=== PATIENT | female | born 1990 | race Two or more races ===

== ENCOUNTER 2024-06-24 10:12 | Outpatient (CLI) | payer OTHER | END 2024-06-24 10:15 | disposition home or self-care (01) | LOC: PRENATAL 10:12 | PROVIDERS: ATTEND Obstetrics & Gynecology Maternal & Fetal Medicine | DX: O35.3XX0 Maternal care for (suspected) damage to fetus from viral disease in mother, not applicable or unspecified (principal); O44.00 Complete placenta previa NOS or without hemorrhage, unspecified trimester; O09.529 Supervision of elderly multigravida, unspecified trimester; Z3A.20 20 weeks gestation of pregnancy ==

== ENCOUNTER 2024-08-10 08:42 | Outpatient (CLI) | payer OTHER | END 2024-08-10 08:43 | disposition home or self-care (01) | LOC: PRENATAL 08:42 | PROVIDERS: ATTEND Obstetrics & Gynecology Maternal & Fetal Medicine | DX: O44.00 Complete placenta previa NOS or without hemorrhage, unspecified trimester (principal); O09.529 Supervision of elderly multigravida, unspecified trimester; Z3A.20 20 weeks gestation of pregnancy ==

== ENCOUNTER 2024-11-02 13:55 | Outpatient (CLI) | payer OTHER | END 2024-11-02 13:56 | disposition home or self-care (01) | LOC: PRENATAL 13:55 | PROVIDERS: ATTEND Obstetrics & Gynecology Maternal & Fetal Medicine | DX: O26.849 Uterine size-date discrepancy, unspecified trimester (principal); O36.8199 Decreased fetal movements, unspecified trimester, other fetus; O09.529 Supervision of elderly multigravida, unspecified trimester; Z3A.33 33 weeks gestation of pregnancy ==

== ENCOUNTER 2024-11-14 00:52 | Outpatient (CLI) | payer OTHER ==
[2024-11-13 23:41] VITALS: BP 118/82
[~2024-11-14] VITALS: Ht 160 cm; Wt 73.0 kg
[2024-11-14] MEDS ORDERED: PRENATAL TABLE1 EAC4 PO (00:57)
[2024-11-14] MEDS ORDERED: MACROBID 100 M100 MG PO (00:57)
[2024-11-14] MEDS ORDERED: RINGERS SOLUTION,LACTATED 1,000 ML IV SCH (01:15)
[2024-11-14] MEDS ORDERED: ACETAMINOPHEN 500 MG GEL..CAP PO PRN (01:15)
[2024-11-14 02:02] LABS: BASO % 0.5 % (0.1-1.2); EOS # 0.11 (0.04-0.54); EOS % 1.4 % (0.7-7.0); HEMATOCRIT 31.8 % (34.1-44.9); HEMOGLOBIN 10.7 g/dL (11.2-15.7); LYMPH # 1.15 (1.18-3.74); LYMPH % 14.6 % (19.3-53.1); MEAN CORPUSCULAR HEMOGLOBIN 29.4 pg (25.6-32.2); MONO % 7.6 % (4.7-12.5); NEUT # 5.95 (1.56-6.13); NEUT % 75.4 % (34.0-71.1); PLATELET COUNT 235 K/uL (163-369); RED BLOOD COUNT 3.64 M/uL (3.93-5.22); URINE APPEARANCE Clear; URINE BILIRRUBIN Negative (NEGATIVE); URINE BLOOD Negative; URINE COLOR Yellow; URINE GLUCOSE Negative (NEGATIVE); URINE KETONE Negative (NEGATIVE); URINE LEUKOCYTE Negative; URINE NITRATE Negative; URINE PROTEIN Negative (NEGATIVE); URINE UROBILINOGEN 0.2 E.U./dl
[2024-11-14 02:06] LABS: URINE BACTERIA 19.5 uL (0.0-1933); URINE EPITHELIAL CELLS 5.4 uL (0.0-38.8); URINE RBC 2.2 uL (0.0-20.8)
[2024-11-14 02:27] LABS: URINE WBC 0.3 uL (0.0-23.2)
[2024-11-14 03:33] VITALS: BP 97/68
[2024-11-14 07:30] VITALS: BP 99/68
[2024-11-14 11:08] VITALS: BP 99/68
== END 2024-11-14 16:46 | disposition home or self-care (01) ==
LOC: OBS/DEL 00:52 → LDR 01:40 → OBS/DEL 01:46
PROVIDERS: Obstetrics & Gynecology; ATTEND General Practice
DX: O26.893 Other specified pregnancy related conditions, third trimester (principal); Z3A.33 33 weeks gestation of pregnancy

== ENCOUNTER 2024-12-19 01:16 | Inpatient (IN) | payer OTHER ==
[~2024-12-19] VITALS: Ht 160 cm; Wt 73.0 kg
[2024-12-19] VITALS (7 sets, daily range): BP systolic 101–130; BP diastolic 55–82
[~2024-12-19 01:16] MED LIST: MACROBID 100 M100 MG PO; PRENATAL TABLE1 EAC4 PO
[2024-12-19] MEDS ORDERED: RINGERS SOLUTION,LACTATED 1,000 ML IV SCH (01:30)
[2024-12-19] MEDS ORDERED: AMPICILLIN SODIUM 2,000 MG VIAL IV ONE (01:30)
[2024-12-19 01:49] LABS: BASO % 0.3 % (0.1-1.2); EOS # 0.06 (0.04-0.54); EOS % 0.8 % (0.7-7.0); HEMATOCRIT 38.6 % (34.1-44.9); HEMOGLOBIN 13.3 g/dL (11.2-15.7); LYMPH # 1.35 (1.18-3.74); LYMPH % 18.1 % (19.3-53.1); MEAN CORPUSCULAR HEMOGLOBIN 30.7 pg (25.6-32.2); MONO # 0.52 (0.24-0.82); NEUT # 5.45 (1.56-6.13); NEUT % 73.3 % (34.0-71.1); PLATELET COUNT 279 K/uL (163-369); RED BLOOD COUNT 4.33 M/uL (3.93-5.22); RED CELL DISTRIBUTION WIDTH 14.2 % (11.6-14.4)
[2024-12-19 01:50] LABS: PH,URINE 6.5 (5.0-8.0); URINE APPEARANCE Cloudy; URINE BILIRRUBIN Negative (NEGATIVE); URINE BLOOD Small; URINE COLOR Yellow; URINE GLUCOSE Negative (NEGATIVE); URINE KETONE Negative (NEGATIVE); URINE LEUKOCYTE Negative; URINE NITRATE Negative; URINE PROTEIN 30 (NEGATIVE); URINE UROBILINOGEN 0.2 E.U./dl
[2024-12-19 01:53] LABS: URINE BACTERIA 89.3 uL (0.0-1933); URINE EPITHELIAL CELLS 37.5 uL (0.0-38.8); URINE RBC 258.6 uL (0.0-20.8); URINE WBC 20.1 uL (0.0-23.2)
[2024-12-19 01:59] LABS: INR < 0.93; PARTIAL THROMBOPLASTIN TIME 27.8 SECONDS (22.0-34.0); PROTHROMBIN TIME 9.8 SECONDS (9.0-11.5)
[2024-12-19 02:05] LABS: ALBUMIN 3.2 gm/dL (3.4-5.0); BILIRUBIN TOTAL 0.28 mg/dL (0.3-1.2); CALCIUM 9.3 mg/dL (8.5-10.1); CREATININE SERUM 0.59 mg/dL (0.55-1.02); GFR 115.99; POTASSIUM 3.7 mEq/L (3.5-5.1); TOTAL PROTEIN 7.2 gm/dL (6.4-8.2)
[2024-12-19] MEDS ORDERED: ONDANSETRON HCL 2 MG/ML VIAL ONE (02:07)
[2024-12-19 02:14] LABS: URINE CAST 1.03 uL (0.0-1.40)
[2024-12-19] MEDS ORDERED: OXYTOCIN 500 ML IV SCH (02:30)
[2024-12-19] MEDS ORDERED: ONDANSETRON HCL 2 MG/ML VIAL IV ONE (02:30)
[2024-12-19] MEDS ORDERED: MORPHINE SULFATE 4 MG/ML VIAL IV ONE (03:00)
[2024-12-19] MEDS ORDERED: AMPICILLIN SODIUM 1,000 MG VIAL IV SCH (05:00)
[2024-12-19] MEDS ORDERED: OXYTOCIN 20 UNITS/1000ML RL PIGGYBAG IV ONE (05:49)
[2024-12-19] MEDS ORDERED: ERYTHROMYCIN BASE OPHT 1GM EACH TUBE OP ONE (05:49)
[2024-12-19] MEDS ORDERED: CHLORHEXIDINE GLUCONATE 120 ML BOTTLE TOP ONE (05:49)
[2024-12-19] MEDS ORDERED: LIDOCAINE HCL 1% 10ML VIAL ONE (05:50)
[2024-12-19] MEDS ORDERED: ACETAMINOPHEN 500 MG GEL..CAP PO PRN (06:45)
[2024-12-19] MEDS ORDERED: IBUprofen 400 MG TABLET PO PRN (06:45)
[2024-12-19] MEDS ORDERED: CHLORHEXIDINE GLUCONATE 120 ML BOTTLE TOP SCH (06:45)
[2024-12-19] MEDS ORDERED: OXYTOCIN 1,000 ML IV SCH (06:45)
[2024-12-19 18:31] LABS: BASO % 0.2 % (0.1-1.2); EOS # 0.03 (0.04-0.54); EOS % 0.2 % (0.7-7.0); HEMATOCRIT 35.9 % (34.1-44.9); HEMOGLOBIN 12.2 g/dL (11.2-15.7); LYMPH # 1.13 (1.18-3.74); LYMPH % 8.6 % (19.3-53.1); MEAN CORPUSCULAR HEMOGLOBIN 29.9 pg (25.6-32.2); MONO # 0.56 (0.24-0.82); MONO % 4.3 % (4.7-12.5); NEUT # 11.32 (1.56-6.13); NEUT % 86.2 % (34.0-71.1); PLATELET COUNT 266 K/uL (163-369); RED BLOOD COUNT 4.08 M/uL (3.93-5.22); RED CELL DISTRIBUTION WIDTH 14.2 % (11.6-14.4)
[2024-12-20 01:00] VITALS: BP 90/61
[2024-12-20 08:00] VITALS: BP 107/74
[2024-12-20] MEDS ORDERED: DOCUSATE SODIUM 100MG CAP PO SCH (12:47)
[2024-12-20] MEDS ORDERED: BENZOCAINE/MENTHOL 90 ML BOTTLE TOP SCH (13:00)
[2024-12-20 15:51] VITALS: BP 92/68
[2024-12-20 23:57] VITALS: BP 92/64
[2024-12-21 08:50] VITALS: BP 108/74
[2024-12-21] MEDS ORDERED: IBUPROFEN400 MG PO (12:36)
[2024-12-21] MEDS ORDERED: COLACE100 MG PO (12:36)
== END 2024-12-21 13:00 | disposition home or self-care (01) | DRG 807 ==
LOC: OB/GYN 01:16 → LDR 01:16 → OB/GYN 09:50
PROVIDERS: ADMIT General Practice; ATTEND General Practice
PROC: 10E0XZZ Delivery of Products of Conception, External Approach (ICD-10-PCS; principal; 2024-12-19)
PROC: 0KQM0ZZ Repair Perineum Muscle, Open Approach (ICD-10-PCS; 2024-12-19)
PROC: 4A1HXCZ Monitoring of Products of Conception, Cardiac Rate, External Approach (ICD-10-PCS; 2024-12-19)
DX: O70.1 Second degree perineal laceration during delivery (principal); Z37.0 Single live birth; O99.824 Streptococcus B carrier state complicating childbirth; Z3A.38 38 weeks gestation of pregnancy